=== PATIENT | female | born 1935 | race Hispanic/Latino ===

== ENCOUNTER 2016-08-15 10:33 | Outpatient (CLI) | payer MEDICARE ==
--- NOTE | 2016-08-15 13:22 | Magnetic Resonance Report ---
MRI scan of brain: History: Dementia. Technique: Multiplanar, multisequence images were obtained without contrast injection. Findings: No evidence of restricted diffusion. Ventricles are normal in size and midline in location. Periventricular area of hyperintensity on flair imaging. No evidence of acute ischemia, hemorrhage or mass. No extra-axial fluid collection. Normal brainstem and cerebellum. Normal sinuses and mastoid air cells. Impression: Small vessel ischemic changes. No acute intracranial
== END 2016-08-15 10:34 | disposition home or self-care (01) ==
LOC: MRI 10:33
PROVIDERS: ATTEND Specialist
DX: G30.9 Alzheimer's disease, unspecified (principal)
CPT/HCPCS: 70551